=== PATIENT | male | born 1935 | race Caucasian/White ===

== ENCOUNTER 2017-12-20 21:19 | Observation (INO) | payer MEDICARE ==
[~2017-12-20] VITALS: Ht 182.9 cm; Wt 86.2 kg
[2017-12-20] MEDS ORDERED: ASPIRIN 325 MG TABLET ONE (21:33)
[2017-12-20] MEDS ORDERED: NITROGLYCERIN 1GM/1 INCH PACKET TD ONE (21:44)
[2017-12-20 21:57] LABS: BASOPHILS % (AUTO) 0.8 % (0.0-5.0); EOSINOPHILS % (AUTO) 4.8 % (0.0-8.0); HEMATOCRIT 33.1 % (42-54); MEAN CORPUSCULAR HEMOGLOBIN 30.8 pg (27.0-33.0); MEAN CORPUSCULAR HGB CONC 34.4 g/dL (32.0-36.0); MEAN CORPUSCULAR VOLUME 89.6 fL (79-99); MONOCYTES % (AUTO) 9.1 % (3.0-13.0); NEUTROPHILS % (AUTO) 63.3 % (40.0-77.0); PLATELET COUNT (AUTO) 213 K/uL (130-400); RED CELL DISTRIBUTION WIDTH 14.8 % (11.0-15.5); WHITE BLOOD COUNT (AUTO) 7.5 K/uL (4.8-10.8)
[2017-12-20 22:11] LABS: INR 1.05 (0.85-1.15); PARTIAL THROMBOPLASTIN TIME 27.4 SEC (26.3-35.5)
[2017-12-20 22:12] LABS: CREATININE 1.8 mg/dL (0.5-1.5); POTASSIUM 3.8 mmol/L (3.5-5.1)
[2017-12-20 22:25] LABS: ALBUMIN 3.4 g/dL (3.5-5.0); BILIRUBIN,TOTAL 0.3 mg/dL (0.2-1.0); CREATINE KINASE MB 1.4 ng/mL (0.5-3.6); TOTAL PROTEIN, SERUM 6.8 g/dL (6.0-8.3)
[2017-12-21] MEDS ORDERED: SODIUM CHLORIDE 0.9% 1000ML 1,000 ML IV SCH (01:12)
[2017-12-21] MEDS ORDERED: ACETAMINOPHEN 325 MG TAB PO PRN ×2 (01:15)
[2017-12-21] MEDS ORDERED: GLUCAGON 1MG KIT 1 MG ML IM PRN (01:15)
[2017-12-21] MEDS ORDERED: ONDANSETRON HCL MDV 20ML 2 MG/ML VIAL IV PRN (01:15)
[2017-12-21] MEDS ORDERED: DEXTROSE 50%-WATER 50 ML DISP.SYRIN IV PRN (01:15)
[2017-12-21] MEDS ORDERED: NITROGLYCERIN 0.4 MG SL TAB SL PRN (01:15)
[2017-12-21] MEDS ORDERED: NITROGLYCERIN 1GM/1 INCH PACKET TD SCH ×3 (01:15→06:24)
[2017-12-21] MEDS ORDERED: PHARMACY COMMUNICATION MISC SCH (02:30)
[2017-12-21] MEDS ORDERED: NITROGLYCERIN 1GM/1 INCH PACKET TD ONE ×2 (04:56→10:34)
[2017-12-21 05:49] LABS: CREATINE KINASE MB 1.3 ng/mL (0.5-3.6); CREATINE KINASE, TOTAL 112 U/L (21-232); MYOGLOBIN 89 ng/mL (10-92); TROPONIN I < 0.04 ng/mL (0.00-0.06)
[2017-12-21] MEDS ORDERED: SODIUM CHLORIDE 0.9% 1000ML 1,000 ML IV ONE (06:33)
[2017-12-21] MEDS ORDERED: INSULIN HUMULIN R 100 UNIT/ML 3ML SQ SCH (07:30)
[2017-12-21] MEDS ORDERED: TRAZ-185 PO (08:12)
[2017-12-21] MEDS ORDERED: UBID200C18 PO (08:12)
[2017-12-21] MEDS ORDERED: QUET25TA PO (08:12)
[2017-12-21] MEDS ORDERED: BRIN10DR OU (08:12)
[2017-12-21] MEDS ORDERED: AEC81 PO (08:12)
[2017-12-21] MEDS ORDERED: MULT-603 PO (08:12)
[2017-12-21] MEDS ORDERED: SERT50TA12 PO (08:12)
[2017-12-21] MEDS ORDERED: QUET50TA PO (08:12)
[2017-12-21] MEDS ORDERED: XALA2.5OS OU (08:12)
[2017-12-21] MEDS ORDERED: CINN500C PO (08:12)
[2017-12-21] MEDS ORDERED: [UNRECOGNIZED DRUG - CODE] PO (08:12)
[2017-12-21] MEDS ORDERED: APIX2.5T PO (08:12)
[2017-12-21] MEDS ORDERED: CHOL200074 PO (08:12)
[2017-12-21] MEDS ORDERED: CYAN250010 PO (08:12)
[2017-12-21] MEDS ORDERED: FENO135C PO (08:12)
[2017-12-21] MEDS ORDERED: NITR0.4T50 SL (08:12)
[2017-12-21] MEDS ORDERED: APIXABAN 2.5 MG TABLET PO ONE (08:56)
[2017-12-21] MEDS ORDERED: ASPIRIN 325 MG TABLET ONE (08:57)
[2017-12-21] MEDS ORDERED: FAMOTIDINE 20MG TAB 20 MG TAB ONE (08:57)
[2017-12-21] MEDS ORDERED: METOPROLOL TARTRATE 25 MG TAB ONE (08:57)
[2017-12-21] MEDS ORDERED: ENOXAPARIN SODIUM 40 MG/0.4 ML SYRINGE SQ ONE (08:58)
[2017-12-21] MEDS ORDERED: ASPIRIN 325 MG TABLET PO SCH ×2 (09:00)
[2017-12-21] MEDS ORDERED: ENOXAPARIN SODIUM 40 MG/0.4 ML SYRINGE SQ SCH (09:00)
[2017-12-21] MEDS ORDERED: METOPROLOL TARTRATE 25 MG TAB PO SCH ×2 (09:00)
[2017-12-21] MEDS ORDERED: FAMOTIDINE 20MG TAB 20 MG TAB PO SCH (09:00)
[2017-12-21] MEDS ORDERED: APIXABAN 5 MG TABLET PO SCH (09:00)
[2017-12-21 10:46] LABS: CREATINE KINASE MB 1.4 ng/mL (0.5-3.6); CREATINE KINASE, TOTAL 192 U/L (21-232); MYOGLOBIN 102 ng/mL (10-92); TROPONIN I < 0.04 ng/mL (0.00-0.06)
== END 2017-12-21 11:55 | disposition home or self-care (01) ==
LOC: EDH 21:19 → EDHIP 22:38
PROVIDERS: ADMIT Family Medicine; ATTEND Family Medicine
DX: R07.89 Other chest pain (principal); I25.10 Atherosclerotic heart disease of native coronary artery without angina pectoris; E11.22 Type 2 diabetes mellitus with diabetic chronic kidney disease; N18.9 Chronic kidney disease, unspecified; N17.9 Acute kidney failure, unspecified; I48.2 Chronic atrial fibrillation; F03.90 Unspecified dementia, unspecified severity, without behavioral disturbance, psychotic disturbance, mood disturbance, and anxiety; Z86.73 Personal history of transient ischemic attack (TIA), and cerebral infarction without residual deficits; Z95.0 Presence of cardiac pacemaker; Z95.5 Presence of coronary angioplasty implant and graft; Z82.49 Family history of ischemic heart disease and other diseases of the circulatory system; Z90.49 Acquired absence of other specified parts of digestive tract
CPT/HCPCS: 36415 ×2; 71045; 80053; 82550 ×3; 82553 ×3; 82948; 83874 ×3; 84484 ×3; 85025; 85378; 85610; 85730; 93005; 99285; G0378 ×13; J1650; J7030

== ENCOUNTER 2017-12-22 16:24 | Emergency (ER) | payer MEDICARE ==
[~2017-12-22 16:24] MED LIST: AEC81 PO; APIX2.5T PO; BRIN10DR OU; CHOL200074 PO; CINN500C PO; CYAN250010 PO; FENO135C PO; MULT-603 PO; NITR0.4T50 SL; QUET25TA PO; QUET50TA PO; SERT50TA12 PO; TRAZ-185 PO; UBID200C18 PO; XALA2.5OS OU; [UNRECOGNIZED DRUG - CODE] PO
[2017-12-22 18:05] LABS: APPEARANCE,URINE Clear (CLEAR); BILIRUBIN,URINE Negative (NEGATIVE); COLOR,URINE Yellow (YELLOW); GLUCOSE, URINE (UA) >=1000 mg/dL (NEGATIVE); KETONES,URINE Negative (NEGATIVE); LEUKOCYTE ESTERASE ,URINE Negative (NEGATIVE); NITRATE,URINE Negative (NEGATIVE); OCCULT BLOOD,URINE Negative (NEGATIVE); PH,URINE 6.5 (5.0-8.0); PROTEIN,URINE Negative (NEGATIVE)
[2017-12-22 18:12] LABS: BACTERIA,URINE None Seen /HPF (None Seen); RBC,URINE None Seen /HPF (0-1); SQUAMOUS EPITHELIAL CELL,UR 0-2 /HPF (0-2); WBC,URINE None Seen /HPF (0-1)
[2017-12-22 18:21] LABS: BASOPHILS % (AUTO) 0.6 % (0.0-5.0); EOSINOPHILS % (AUTO) 2.1 % (0.0-8.0); HEMATOCRIT 37.9 % (42-54); LYMPHOCYTES % (AUTO) 15.1 % (21.0-51.0); MEAN CORPUSCULAR HEMOGLOBIN 30.6 pg (27.0-33.0); MEAN CORPUSCULAR HGB CONC 34.1 g/dL (32.0-36.0); MEAN CORPUSCULAR VOLUME 89.7 fL (79-99); MONOCYTES % (AUTO) 7.5 % (3.0-13.0); NEUTROPHILS % (AUTO) 74.7 % (40.0-77.0); PLATELET COUNT (AUTO) 237 K/uL (130-400); RED BLOOD CELL COUNT(AUTO) 4.23 MIL/uL (4.50-6.20); RED CELL DISTRIBUTION WIDTH 14.9 % (11.0-15.5); WHITE BLOOD COUNT (AUTO) 10.2 K/uL (4.8-10.8)
[2017-12-22 18:32] LABS: CREATININE 1.5 mg/dL (0.5-1.5); POTASSIUM 3.6 mmol/L (3.5-5.1)
[2017-12-22 18:34] LABS: INR 0.98 (0.85-1.15); PARTIAL THROMBOPLASTIN TIME 25.1 SEC (26.3-35.5); PROTHROMBIN TIME 10.1 SEC (9.6-11.6)
[2017-12-22] MEDS ORDERED: TRAMADOL HCL 50 MG TABLET ONE (18:38)
[2017-12-22 18:44] LABS: ALBUMIN 3.8 g/dL (3.5-5.0); BILIRUBIN,TOTAL 0.4 mg/dL (0.2-1.0); CREATINE KINASE MB 1.3 ng/mL (0.5-3.6); TOTAL PROTEIN, SERUM 7.9 g/dL (6.0-8.3)
== END 2017-12-22 19:39 | disposition home or self-care (01) ==
LOC: EDH 16:24
DX: S22.32XA Fracture of one rib, left side, initial encounter for closed fracture (principal); I25.10 Atherosclerotic heart disease of native coronary artery without angina pectoris; E11.9 Type 2 diabetes mellitus without complications; Z86.73 Personal history of transient ischemic attack (TIA), and cerebral infarction without residual deficits; Z91.013 Allergy to seafood; Z91.018 Allergy to other foods; W01.0XXA Fall on same level from slipping, tripping and stumbling without subsequent striking against object, initial encounter; Y93.89 Activity, other specified; Y92.89 Other specified places as the place of occurrence of the external cause; Y99.8 Other external cause status
CPT/HCPCS: 36415; 70450; 71046; 71100; 73502; 74176; 80053; 81001; 82150; 82550; 82553; 83690; 85025; 85610; 85730